=== PATIENT | female | born 1995 | race Caucasian/White ===

== ENCOUNTER 2016-06-11 19:49 | Emergency (ER) ==
[2016-06-11 19:55] VITALS: BP 114/67
--- NOTE | 2016-06-11 20:39 | PROVIDER DOCUMENTATION ---
HPI-Respiratory General - General Source: patient - History of Present Illness-Resp Severity in ED: reports: severe Onset/Duration: reports: 1 week ago Timing: reports: still present Cough Quality/Degree: reports: dry cough Current Respiratory Medication Therapy: Initiated none Similar Symptoms Previously?: No Recently seen or treated by another doctor?: No <Eduin Shelley - Last Filed: 06/11/16 20:36> <Romain Sullivan - Last Filed: 06/11/16 21:16> - General Chief Complaint: Cough Stated Complaint: CHEST PAIN/SOB/FLU SX Time Seen by Provider: 06/11/16 20:30 Allergies/Adverse Reactions: Patient Allergies Allergy/AdvReac Type Severity Reaction Status Date / Time No Known Allergies Allergy Verified 06/11/16 19:54 Home Medications: Home Medication List Medication Instructions Recorded Confirmed Last Taken Type Azithromycin [Zithromax Z-Eugene] 250 mg PO DIRECTED #1 pkg 06/11/16 Unknown Rx Guaifenesin/D-Methorphan Hb/PE 1 each PO Q6-8H PRN PRN #14 tablet 06/11/16 Unknown Rx [Deconex Dmx Tablet] Prednisone 20 mg PO DAILY #6 tablet 06/11/16 Unknown Rx - History of Present Illness-Resp Nature of Presenting Problem: 21 y/o F presents with a cough for 1 week. Pt states the last 3 days it has been a dry hacky cough. (Eduin Shelley) Review of Systems - Adult - REVIEW OF SYSTEMS - ADULT Constitutional: denies: chills, fever Eyes: reports: no symptoms reported Ears, Nose, Mouth & Throat: reports: no symptoms reported Cardiovascular: reports: no symptoms reported Respiratory: reports: cough. denies: shortness of breath, wheezing Gastrointestinal: reports: no symptoms reported Genitourinary: reports: no symptoms reported Musculoskeletal: reports: no symptoms reported Integumentary: reports: no symptoms reported Neurological: reports: no symptoms reported Psychiatric: reports: no symptoms reported Endocrine: reports: no symptoms reported Hematologic/Lymphatic: reports: no symptoms reported Allergic/Immunologic: reports: no symptoms reported All Other Systems: Reviewed and Negative <Eduin Shelley - Last Filed: 06/11/16 20:36> Past History - Adult - PAST MEDICAL HISTORY-ADULT Review of Records: reports: Old Records Reviewed, Nursing Assessment Review, Medications Reviewed - SOCIAL HISTORY Smoking: cigarettes, less than 1 pack/day Living Situation: family <Eduin Shelley - Last Filed: 06/11/16 20:36> Physical Exam-General - PHYSICAL EXAM-ADULT Initial Vital Signs Reviewed: Yes - CONSTITUTIONAL General Appearance: alert, no apparent distress - EYES Eyes: PERRL/EOMI, pink conjunctivae - HEAD, EARS, NOSE, MOUTH & THROAT HENMT: moist mucous membranes, normal ENT inspection, TMs normal, pharynx normal - NECK Neck: non-tender, full range of motion, supple, normal inspection - RESPIRATORY Respiratory: lungs clear, normal breath sounds, no respiratory distress, no accessory muscle use. negative: wheezing - CARDIOVASCULAR Cardiovascular: normal peripheral pulses, regular rate, rhythm - GASTROINTESTINAL (ABDOMEN) Abdominal Exam: normal bowel sounds, non tender, soft - MUSCULOSKELETAL Back Exam: normal inspection, no CVA tenderness, no vertebral tenderness Extremity: normal range of motion, non-tender, normal gait, normal inspection - SKIN Integumentary: normal color, normal turgor, warm/dry - NEUROLOGIC Neurologic: grossly normal, no motor/sensory deficits - PSYCHIATRIC Psych/Mental Status: normal mood/affect, normal thought content, normal thought process, oriented x 3 <Eduin Shelley - Last Filed: 06/11/16 20:36> Progress <Eduin Shelley - Last Filed: 06/11/16 20:36> - XRAY 1 XRAY Study: Chest XRAY Interpretation: nad <Romain Sullivan - Last Filed: 06/11/16 21:16> - PLAN OF CARE/RESULTS Progress/Plan/Lab Results: Laboratory Tests 06/11/16 19:50 Influenza A (Rapid) NEGATIVE Influenza B (Rapid) NEGATIVE Orders Category Date Time Status ED: Urine Bedside ORDERED Care 06/11/16 20:30 Active CHEST-2 VIEWS [RAD] Stat Exams 06/11/16 19:[address] Stat Lab 06/11/16 19:50 Completed Vital Signs Temp Pulse Resp BP Pulse Ox 06/11/16 19:51 99.4 F 91 H 18 114/67 100 No Known Allergies Allergy (Verified 06/11/16 19:54) Laboratory 06/11/16 19:50 Influenza A (Rapid) NEGATIVE Influenza B (Rapid) NEGATIVE (Romain uSllivan) Departure <Eduin Shelley - Last Filed: 06/11/16 20:36> - Departure Time of Disposition Order: 21:15 Certified Medical Emergency: Urgent <Romain Sullivan - Last Filed: 06/11/16 21:16> - Departure DIAGNOSIS: Acute bronchitis Qualifiers: Bronchitis organism: unspecified organism Qualified Code(s): J20.9 - Acute bronchitis, unspecified Disposition: HOME 01 Condition: Good Additional Instructions: Take medication as prescribed. Follow up with your primary care provider. ED Follow Up Instructions: You have been treated by a care provider in the Emergency Department. These instructions are being provided to you so you can have an understanding of how to care for yourself upon discharge. Upon discharge from the Emergency Department, you are responsible for making arrangements for follow-up care by a physician of your choice. Take all prescribed medications as directed. Return to the Emergency Department immediately for any new or worsening symptoms. You may call the Physician Referral phone number at [phone] to obtain a list of Physicians who are taking new patients. Prescriptions: Guaifenesin/D-Methorphan Hb/PE [Deconex Dmx Tablet] 1 each PO Q6-8H PRN PRN #14 tablet PRN Reason: Cough and congestion Prednisone 20 mg PO DAILY #6 tablet Azithromycin [Zithromax Z-Eugene] 250 mg PO DIRECTED #1 pkg Attestation - Scribe Verification/Attestation Scribe:: Eduin Shelley Acting as Scribe for:: Romain Sullivan Scribe documention review:: This chart was documented by a scribe and accurately reflects the service the provider performed and the decisions made by the provider. <Eduin Shelley - Last Filed: 06/11/16 20:36> - Physician/ DELPHINE Attestation Patient care was provided by Advanced Practice Provider:: Yes Advanced Practice Provider:: Romain Sullivan Advanced Practice Provider documentation review:: The Mid-level provider documentation, treatment plan and medical decision making was reviewed by the physician who agrees with all treatment and medical decision making by the [facility]. <Romain Sullivan - Last Filed: 06/11/16 21:16> Physician Attestation
[2016-06-11] MEDS ORDERED: TESSALON PO ONE (21:16)
--- NOTE | 2016-06-12 06:56 | Diag Imaging Result Document ---
PROCEDURE NAME: CHEST-2 VIEWS - 06/11/2016 FRONTAL AND LATERAL CHEST, 2 VIEWS: COMPARISON: No comparison films. FINDINGS: The lungs are well expanded. The heart is not enlarged. The pulmonary vessels are small. No pleural effusions. There are no infiltrates. IMPRESSION: 1. No pneumonia. 2. The lungs are hyperexpanded.
== END 2016-06-11 21:48 | disposition home or self-care (01) ==
LOC: P.ED 19:49
DX: J20.9 Acute bronchitis, unspecified (principal); R05 Cough; R06.02 Shortness of breath; R07.9 Chest pain, unspecified; F17.210 Nicotine dependence, cigarettes, uncomplicated
CPT/HCPCS: 71020; 81025; 87804; 99283